=== PATIENT | male | born 1965 | race Caucasian/White ===

== ENCOUNTER 2025-01-10 23:46 | Emergency (ER) | payer OTHER, SELFPAY ==
[2025-01-11 00:11] VITALS: BP 155/94
[2025-01-11 01:36] LABS: Hematocrit 40.0 % (39.0-52.0); Hemoglobin 13.6 g/dL (13.0-18.0); Mean Corp Hgb Conc. 34.0 g/dL (33.0-37.0); Mean Corpuscular Volume 88.1 fL (80.0-94.0); Nucleated Red Blood Cells % 0 % (-); Platelet Count 267 10^3/uL (130-400); Red Cell Dist. Width 12.9 % (11.5-14.5)
[2025-01-11 01:53] LABS: ALT (SGPT) 48 U/L (0-50); AST (SGOT) 37 U/L (17-59); Albumin 4.7 g/dl (3.5-5.0); Alkaline Phosphatase 74 U/L (38-126); Blood Urea Nitrogen 16 mg/dl (9-20); Calcium 9.3 mg/dl (8.4-10.2); Carbon Dioxide 27 mmol/L (22-30); Chloride 105 mmol/L (98-107); Glucose 114 mg/dl (70-99); Potassium 4.4 mmol/L (3.5-5.1); Sodium 139 mmol/L (135-145); Total Protein 7.1 g/dl (6.3-8.2); eGFR > 60.00
[2025-01-11 02:06] LABS: Troponin I < 0.012 ng/ml
--- NOTE | 2025-01-11 03:17 | ED.GENMED ---
History of Present Illness
General
Chief Complaint: Weakness
Source: patient
Exam Limitations: none
Time Seen by Provider: 01/11/25 02:26
Nursing documentation reviewed up to this point in time: agreed with
History of Present Illness
History of Present Illness:
59-year-old male presenting to the emergency department today with concerns of an episode where he felt lightheaded short of breath and clammy just prior to arrival. Lasted for few minutes and has since resolved. Denies similar symptoms in the
past. No specific chest pain. No recent trauma surgery immobilization, leg swelling or history of blood clot
Review of Systems
Review of Systems
Allergies reviewed?: Yes
All Other Systems: ROS reviewed and negative except as documented in HPI and ROS
Phy Exam
Physical Exam
Physical Exam:
GENERAL: Alert , in no apparent distress
EYE: pupils equal and reactive
NECK: Supple, no significant adenopathy.
ENT: o/p clr, mmm.
CARDIAC: Regular rate and rhythm .
LUNGS: Clear breath sounds bilaterally, no acute respiratory distress, no wheezes/rales/rhonchi
ABDOMEN: Soft, without focal tenderness, no r/g, no cvat
NEUROLOGICAL: Alert and oriented, no focal neuro deficits
SKIN: Warm and dry, skin intact.
MUSCULOSKELETAL: No edema, well perfused.
PSYCH: Normal and appropriate interaction.
Course
Orders/Labs/Results
Orders:
Orders
01/11/25 00:15
EKG [Electrocardiogram (*1)] Urgent
Reason for Study: Tachycardia
01/11/25 00:16
EKG- Treatment ONCE
01/11/25 01:16
Complete Blood Count/With Diff Urgent
Comprehensive Metabolic Panel Urgent
Troponin I Urgent
01/11/25 03:02
Troponin I Urgent
Abnormal Lab Results
01/11/25
01:16
RBC 4.54 L 10^6/uL
(4.70-6.10)
Absolute Lymphs (auto) 1.1 L 10^3/uL
(1.2-3.4)
Lymphocytes % 18.8 L %
(20.5-51.1)
Glucose 114 H mg/dl
(70-99)
01/11/25 01:16
01/11/25 01:16
Vital Signs
Initial and Last Documented VS:
Initial Vital Signs
Temp Pulse Resp BP Pulse Ox
98.5 F 78 18 155/94 97
01/11/25 00:11 01/11/25 00:11 01/11/25 00:11 01/11/25 00:11 01/11/25 00:11
Last Documented Vital Signs
Temp Pulse Resp BP Pulse Ox
98.5 F 67 20 135/90 98
01/11/25 00:11 01/11/25 03:30 01/11/25 03:30 01/11/25 03:30 01/11/25 03:30
MDM/Problems Addressed
MDM/Problems Addressed:
59-year-old male presenting to the emergency department today with concerns episode of lightheadedness shortness of breath prior to arrival. No specific chest pain. On arrival vital signs are normal patient no distress labs unremarkable EKG
without emergent findings. Here patient well-appearing in no distress. No ongoing symptoms. Troponin negative x 2 EKG unchanged stable for close outpatient follow-up. Return precautions given.
*Pulse Oximetry
SaO2: 97
Oxygen Mode of Delivery: Room air
Patient hypoxic: no (98)
*Critical Care Note
Total Time (30-74mins, 75-104mins- exclusive of procedures): Not Applicable
ED Attending Note
-
Portions of this chart may have been created with voice recognition software.� Occasional wrong word or��sound alike� substitutions may have occurred due to the inherent limitations of voice recognition software.
Discharge Plan
Departure
Patient Disposition: Home (Routine Discharge)
Date of Disposition: 01/11/25
Time of Disposition: 04:48
Patient with high blood pressure during this ER visit?: No
Condition: Good
Covid-19: Not Applicable
Discharge Problem:
Lightheadedness
Instructions: Generalized Weakness (DC)
Referrals:
Leann Wheat MD [Family Provider, [facility]]
Activity Restrictions/Additional Instructions:
You came to the emergency department today with multiple symptoms. You had a reassuring assessment. Please follow-up closely with your primary care doctor within the next week. Return for any worsening, new or concerning symptoms.
Interventions
Interventions:
*Risk Screen - Suicide Last Done: 01/11/25 00:11
ED- Cardiac Assessment Last Done: 01/11/25 02:00
ED- Neurological Assessment Last Done: 01/11/25 02:00
ED- Pulmonary Assessment Last Done: 01/11/25 02:00
Discharge Date and Time
Print Language: [id number]
[2025-01-11 03:30] VITALS: BP 135/90
[2025-01-11 04:03] LABS: Troponin I < 0.012 ng/ml
== END 2025-01-11 04:56 | disposition home or self-care (01) ==
LOC: EMR 23:46
PROVIDERS: Emergency Medicine; Physician Assistant; EMERGENCY PHYSICIAN Emergency Medicine; FAMILY PHYSICIAN Family Medicine
DX: R42 Dizziness and giddiness (principal)
CPT/HCPCS: 99284; 80053; 84484; 85025; 93005

== ENCOUNTER → 2025-01-19 13:14 | Outpatient (REF) | payer OTHER, SELFPAY | LOC: HWRAD 13:14 | PROVIDERS: ATTENDING PHYSICIAN Family Medicine | DX: R42 Dizziness and giddiness (principal) | CPT/HCPCS: 70450 ==

== ENCOUNTER → 2025-02-09 14:13 | Outpatient (REF) | payer OTHER, SELFPAY | LOC: RCS 14:13 | PROVIDERS: ATTENDING PHYSICIAN Family Medicine | DX: R07.89 Other chest pain (principal) | CPT/HCPCS: 93017 ==